=== PATIENT | male | born 1990 | race Caucasian/White ===

== ENCOUNTER 2017-11-13 17:45 | Emergency (ER) | payer OTHER ==
[~2017-11-13] VITALS: Ht 167.6 cm; Wt 113.4 kg
[~2017-11-13 17:45] MED LIST: AUGMENTIN 875875 M1 PO; CYCLOBENZAPRINE5 MG PO; IBUPROFEN 800800 M1 PO; KETOCONAZOLE 2200 MG PO; LIORESAL 10 MG10 MG PO; NAPROSYN500 MG PO; NOHOMEMEDICATIONS; NORCO 5-325 TA1 EAC1 PO; ONDANSETRON HCL4 M2 PO; PHENERGAN 25 MG25 M1 PO; PRILOSEC 20 MG20 MG PO; PROMS25 WY RECTAL; TRAMADOL 50 MG50 MG PO; ULTRAM 50MG TAB50 MG PO; ZANTAC 150MG T150 MG PO; ZOFRAN ODT4 MG PO
[2017-11-13 18:15] LABS: ABSOLUTE BASOPHILS 0.1 thou/uL (0.0-0.2); ABSOLUTE LYMPHOCYTES 1.5 thou/uL (0.8-5.3); ABSOLUTE MONOCYTES 0.5 thou/uL (0.0-1.2); ABSOLUTE NEUTROPHILS 11.6 thou/uL (1.6-8.1); BASOPHILS 0.5 %; EOSINOPHILS 0.3 %; HEMATOCRIT 48.4 % (42.0-52.0); HEMOGLOBIN 16.5 gm/dL (14.0-18.0); LYMPHOCYTES 10.9 %; MCH 28.9 pg (26.0-34.0); MCHC 34.1 g/dL (28.0-37.0); MCV 84.5 fL (80.0-100.0); MONOCYTES 3.6 %; MPV 7.6 fl. (7.2-11.1); NUCLEATED RBCS 0 /100WBC; PLATELET COUNT* 239 thou/uL (150-400); POLYS 84.7 %; RBC 5.73 mil/uL (4.50-6.00); WBC 13.7 thou/uL (4.0-11.0)
[2017-11-13 18:23] LABS: CALCIUM 9.8 mg/dL (8.5-10.1); CREATININE 0.9 mg/dL (0.6-1.3)
[2017-11-13 18:28] LABS: ALBUMIN 4.7 g/dL (3.4-5.0); TOTAL BILIRUBIN 0.4 mg/dL (<0.1-1.0); TOTAL PROTEIN 8.6 g/dL (6.4-8.2)
[2017-11-13] MEDS ORDERED: ZOFRAN ODT4 MG PO (18:38)
[2017-11-13] MEDS ORDERED: PROMS25 WY RECTAL (18:38)
[2017-11-13 19:26] VITALS: BP 148/97
== END 2017-11-13 19:28 | disposition home or self-care (01) ==
LOC: M.ERS 17:45
PROVIDERS: Physician Assistant
DX: R11.2 Nausea with vomiting, unspecified (principal); K21.9 Gastro-esophageal reflux disease without esophagitis

== ENCOUNTER 2018-08-02 02:07 | Emergency (ER) | payer OTHER | END 2018-08-02 03:47 | LOC: M.ERS 02:07 | DX: Z53.21 Procedure and treatment not carried out due to patient leaving prior to being seen by health care provider (principal) ==

== ENCOUNTER 2018-10-17 19:26 | Emergency (ER) | payer OTHER ==
[~2018-10-17] VITALS: Ht 170.2 cm; Wt 108.9 kg
[2018-10-17] MEDS ORDERED: KEFLEX500 M1 PO (21:48)
[2018-10-17] MEDS ORDERED: IBUPROFEN 800800 M1 PO (21:48)
[2018-10-17 22:06] VITALS: BP 139/89
== END 2018-10-17 22:07 | disposition home or self-care (01) ==
LOC: M.ERS 19:26
DX: S61.412A Laceration without foreign body of left hand, initial encounter (principal); K21.9 Gastro-esophageal reflux disease without esophagitis; F17.210 Nicotine dependence, cigarettes, uncomplicated; W26.8XXA Contact with other sharp object(s), not elsewhere classified, initial encounter; Y93.89 Activity, other specified; Y92.89 Other specified places as the place of occurrence of the external cause; Y99.8 Other external cause status

== ENCOUNTER 2018-10-26 19:17 | Emergency (ER) | payer OTHER ==
[~2018-10-26] VITALS: Ht 170.2 cm; Wt 108.9 kg
[~2018-10-26 19:17] MED LIST changes: +KEFLEX500 M1 PO
[2018-10-26 19:21] VITALS: BP 154/94
== END 2018-10-26 19:31 | disposition home or self-care (01) ==
LOC: M.ERS 19:17
DX: S61.412D Laceration without foreign body of left hand, subsequent encounter (principal); K21.9 Gastro-esophageal reflux disease without esophagitis; X58.XXXD Exposure to other specified factors, subsequent encounter